=== PATIENT | male | born 1945 | race Caucasian/White ===

== ENCOUNTER → 2018-03-23 | Day surgery (SDC) | payer OTHER ==
[2018-02-23 10:54] VITALS: BMI 28.2
[~2018-03-23] MED LIST: LACTATED RINGERS 1,000 ML IV SCH; LIDOCAINE 1% 20 ML VIAL (10MG/ML) FOR IV START INTRADERMA PRN; LIDOCAINE 1% INJ 10MG/ML (20 ML MDV) ONE; PROPOFOL 10 MG/ML 20 ML VIAL IV ONE
[2018-03-23 11:27] VITALS: TEMP 96.9
--- NOTE | 2018-03-23 13:10 | P.PCN ---
Date of Procedure: 03/23/18 Procedure(s) Performed: Procedure: Total colonoscopy. Preoperative diagnosis: Screening for neoplasia, patient has history of polyps and family history of colon cancer in his dad. Postoperative diagnosis: Sigmoid diverticulosis with no evidence of acute diverticulitis, strictures, polyps or cancer. Preparation: HalfLytely prep. Sedation: Was provided by anesthesia. Brief clinical history: The patient is a 72-year-old male who is scheduled for this evaluation because of history of polyps and family history of colon cancer in his father. His last exam was around 10 years ago. The patient has no abdominal complaints, bleeding or anemia. Procedure: With the patient on his left lateral decubitus position and after informed consent and adequate sedation, the perianal area was inspected and it did not show any fissures or fistulas. There were no masses felt on digital rectal examination. The Olympus CFQ 160L video colonoscope was then inserted in the rectum in the usual fashion and advanced to the cecum. There were a few small diverticular orifices seen scattered in the sigmoid but I saw no evidence of acute diverticulitis or strictures. No polyps or tumors were seen. The mucosa appeared healthy. I retroflexed the endoscope in the rectum before the endoscope was withdrawn. The patient tolerated the procedure well. Plan: The patient was reassured. Discussed dietary measures. He will follow up with you as planned and I recommended repeat exam in 5 years.
[2018-03-23 13:11] VITALS: RESP 18
[2018-03-23 13:40] VITALS: BP 123/84; PULSE 76
== END | disposition home or self-care (01) ==
LOC: ORWHC2ENDO 11:02
DX: Z12.11 Encounter for screening for malignant neoplasm of colon (principal); K57.30 Diverticulosis of large intestine without perforation or abscess without bleeding; J45.909 Unspecified asthma, uncomplicated; E07.9 Disorder of thyroid, unspecified; I10 Essential (primary) hypertension; Z88.0 Allergy status to penicillin; Z86.010 Personal history of colon polyps; Z80.0 Family history of malignant neoplasm of digestive organs; Z79.890 Hormone replacement therapy
CPT/HCPCS: 45378; J2001; J2704